=== PATIENT | female | born 2000 | race African-American/Black ===

== ENCOUNTER 2019-11-07 12:25 | Emergency (ER) | payer BC, SELFPAY ==
[2019-11-07 12:43] VITALS: BP 114/67; PULSE 91; RESP 16; TEMP 36.4; O2SAT 100
--- NOTE | 2019-11-07 13:47 | ED.DENTAL ---
HPI - Dental/Oral General Chief complaint: Dental/Oral Stated complaint: Tooth Ache Time Seen by Provider: 11/07/19 13:47 Mode of arrival: ambulatory Limitations: no limitations History of Present Illness HPI Narrative: Oni Riuz is a 18 yo female with no PMH who came to [facility] care for dental pain. Tooth 28/29- appointment for sedation this week for removal Related Data Home Medications Medication Instructions Recorded Confirmed multivitamin 11/07/19 Allergies Allergy/AdvReac Type Severity Reaction Status Date / Time No Known Allergies Allergy Verified 11/07/19 12:47 Review of Systems Review of Systems: Narrative: CONSTITUTIONAL: Denies fever, chills, sweats. EYES: Denies visual changes, redness, discharge. ENT: Denies rhinorrhea, congestion, sore throat, otalgia. Teeth 28 and 29 CARDIOVASCULAR: Denies chest pain, palpitations, edema. RESPIRATORY: Denies dyspnea, wheezing, cough GASTROINTESTINAL: Denies abdominal pain, nausea, vomiting, diarrhea. GENITOURINARY: Denies dysuria, hematuria, abnormal discharge SKIN: Denies rash or itching. NEUROLOGIC: Denies numbness, or focal weakness. PSYCHIATRIC: Denies anxiety or depression. FORMERLY [facility], 1928–1983 Family History Family History Other No active medical problems Social History Social History (Updated 11/07/19 @ 13:55 by Fernanda Hdez CNP) Living arrangements: with family Occupation/Education: student Comments At time of signature, I agree with nursing past medical, surgical, social and family history. There is no relevant family history pertinent to the presenting complaint. Exam Narrative: Exam Narrative: GENERAL: This is a well-nourished, well-developed patient, cooperative w exam, has Down's syndrome, in no apparent distress. HEAD: normocephalic, atraumatic. EYES:. Sclera clear/white. Vision is grossly intact. EARS: External ears normal, auditory canals clear and without drainage, TMs normal without perforation. Hearing grossly intact. NOSE: External nose normal with no obvious nasal discharge, nares without redness, no rhinorrhea. THROAT: Mucous membranes moist, posterior pharynx clear. dentition fair but tooth crowding on L lower jaw- child points to that side when asked about pain NECK: Neck supple, non-tender without lymphadenopathy, masses or thyromegaly. CARDIOVASCULAR: Regular rate and rhythm without murmurs, gallops, or rubs. RESPIRATORY: Clear to auscultation. Breath sounds equal bilaterally. No wheezes, rales, or rhonchi. GASTROINTESTINAL: Abdomen soft, non-tender, nondistended. Bowel sounds are active SKIN: warm, intact with no suspicious lesions or rash, good texture and turgor. NEURO: awake, alert, and oriented to person, place and time. There were no obvious focal neurologic abnormalities. Steady gait EXTREMITIES: Normal range of motion. No edema. BACK: Nontender without deformity or crepitance. . Course Course Emergency Course: Started on penicillin Has dental appointment this week Vital Signs Vital signs: Vital Signs Temperature 97.5 F L 11/07/19 12:43 Pulse Rate 91 11/07/19 12:43 Respiratory Rate 16 11/07/19 12:43 Blood Pressure 114/67 11/07/19 12:43 Pulse Oximetry 100 11/07/19 12:43 Temperature 97.5 F L 11/07/19 12:43 Pulse Rate 91 11/07/19 12:43 Respiratory Rate 16 11/07/19 12:43 Blood Pressure 114/67 11/07/19 12:43 Pulse Oximetry 100 11/07/19 12:43 MDM - Dental/Oral Differential Diagnosis Differential diagnosis: Likely dental caries, toothache and dental abscess Discharge Plan Discharge Clinical Impression: Toothache Patient Disposition: Home, Self-Care Condition: Stable Instructions: Antibiotic Form, Toothache (ED) Prescriptions: New amoxicillin 400 mg/5 mL suspension for reconstitution 1,000 mg PO Q12H 10 Days Qty: 250 RF: 0 No Action multivitamin RF: 0 Follow-up/Referrals: Reyn
== END 2019-11-07 14:05 | disposition home or self-care (01) ==
PROVIDERS: Emergency Provider Nurse Practitioner; PCP Family Medicine
DX: K08.89 Other specified disorders of teeth and supporting structures (principal); Q90.9 Down syndrome, unspecified
CPT/HCPCS: 99202; G0463

== ENCOUNTER 2021-11-16 16:27 | Emergency (ER) | payer BC, SELFPAY ==
[2021-11-16 16:43] VITALS: BP 113/65; PULSE 61; RESP 16; TEMP 36.7; O2SAT 99
--- NOTE | 2021-11-16 16:56 | ED.DENTAL ---
HPI - Dental/Oral General Chief complaint: Dental/Oral Stated complaint: tooth pain Time Seen by Provider: 11/16/21 16:48 Source: patient, family, RN notes reviewed and old records reviewed Mode of arrival: ambulatory Limitations: no limitations History of Present Illness HPI Narrative: 20-year-old Down syndrome female patient accompanied by mother and brother presents to [facility] with complaints of 2-day history of pain and swelling to the first molar lower right with swelling and redness noted of tissue around gum. Patient is afebrile no difficulty swallowing or any difficulty with breathing noted no Johan angina no swelling of face noted. Mother states that patient has appointment at [facility] dentistry on the . MD Complaint: tooth pain Location: Tooth # (28) Onset (ago): day(s) (2) Severity: moderate Exacerbating factors: chewing Associated symptoms: gum swelling Treatment prior to arrival: oral analgesic Related Data Allergies Allergy/AdvReac Type Severity Reaction Status Date / Time No Known Allergies Allergy Verified 11/16/21 16:58 Review of Systems Review of Systems: CONSTITUTIONAL: Denies fever, chills, or sweats. EYES: Denies visual changes, redness, or discharge. ENT: Positive for rhinorrhea,no congestion, sore throat, or otalgia, dental pain swollen red gum around #28 tooth CARDIOVASCULAR: Denies chest pain, palpitations, or edema. RESPIRATORY: Denies cough or dyspnea. GASTROINTESTINAL: Denies abdominal pain, nausea, vomiting, or diarrhea. GENITOURINARY: Denies dysuria or hematuria. SKIN: Denies rash or itching. MUSCULOSKELETAL: Denies back pain, joint pain, or myalgia. NEUROLOGIC: Denies headache, numbness, or weakness. PSYCHIATRIC: Denies anxiety or depression.cooperative All systems reviewed & are unremarkable except as noted in HPI and below PMFSH Past Medical History Medical History (Updated 11/17/21 @ 00:10 by Sapphire Zuñiga NP) History of dental problems Family History Family History Other No active medical problems Social History Social History (Updated 11/17/21 @ 00:10 by Sapphire Zuñiga NP) Smoking status: Never smoker Alcohol intake: never Substance use: never Living arrangements: with family Gender identity (if verbalized by the patient): Female Exam Narrative: GENERAL: Well-appearing, well-nourished, and in no acute distress. HEAD: Normocephalic, atraumatic. EYES: PERRLA and EOMI. ENT: Nares clear, clear rhinorrhea no epistaxis. Mucous membranes moist.TM's normal with good light reflex, throat pink with no lesion or tonsil swelling, no Johan angina or any facial swelling, red swollen tissue around 1st molar(#28) on right lower with no drainage noted, no trismus present NECK: Supple.no lymphadenopathy CHEST: Clear to auscultation. No respiratory distress.SAO2 99% on room air. HEART: Regular rate and rhythm. No murmur heard. Normal peripheral pulses. ABDOMEN: Soft, nontender, nondistended, normal active bowel sounds. EXTREMITIES: Normal range of motion. No edema. SKIN: Warm, dry, no rash. NEURO: No focal deficits. Alert and oriented x3. Course Course Level of Care: Express Care Visit Vital Signs Vital signs: Vital Signs Temperature 36.7 C 11/16/21 16:43 Pulse Rate 61 11/16/21 16:43 Respiratory Rate 16 11/16/21 16:43 Blood Pressure 113/65 11/16/21 16:43 Pulse Oximetry 99 11/16/21 16:43 Temperature 36.7 C 11/16/21 16:43 Pulse Rate 61 11/16/21 16:43 Respiratory Rate 16 11/16/21 16:43 Blood Pressure 113/65 11/16/21 16:43 Pulse Oximetry 99 11/16/21 16:43 MDM - Dental/Oral Differential Diagnosis Differential diagnosis: Likely dental caries, toothache, dental abscess and other (dentalgia) Medical Records Attestation: I reviewed the patient's medical records. Critical Care Time Critical Care Time Critical Care Time: No Discharge Plan Discharge Clinical Imp
== END 2021-11-16 17:15 | disposition home or self-care (01) ==
PROVIDERS: Emergency Provider Registered Nurse
DX: K04.7 Periapical abscess without sinus (principal)
CPT/HCPCS: 99213; G0463